=== PATIENT | male | born 1985 | race American Indian/Alaskan Native ===

== ENCOUNTER 2020-01-20 15:57 | Emergency (ER) | payer OTHER ==
[2020-01-20] MEDS ORDERED: IBUPROFEN 600 MG TAB PO ONE (19:57)
[2020-01-20] MEDS ORDERED: ACETAMINOPHEN 500 MG TAB PO ONE (19:57)
[2020-01-20 20:39] VITALS: BP 131/79
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
== END 2020-01-20 21:40 | disposition home or self-care (01) ==
LOC: ED 15:57
DX: S43.401A Unspecified sprain of right shoulder joint, initial encounter (principal); M62.830 Muscle spasm of back; Z90.49 Acquired absence of other specified parts of digestive tract; Z79.1 Long term (current) use of non-steroidal anti-inflammatories (NSAID); Z79.899 Other long term (current) drug therapy; V49.49XA Driver injured in collision with other motor vehicles in traffic accident, initial encounter; Y93.89 Activity, other specified; Y92.488 Other paved roadways as the place of occurrence of the external cause; Y99.8 Other external cause status
CPT/HCPCS: 72040; 72100